=== PATIENT | male | born 1980 | race African-American/Black ===

== ENCOUNTER 2017-11-23 08:38 | Emergency (ER) ==
[2017-11-23 08:47] VITALS: BP 171/82; TEMP 96.2; BMI 31.9
[2017-11-23] MEDS ORDERED: PHENERGAN 25 MG/ML VIAL 25 MG in SODIUM CHLORIDE 50 ML IV STA (09:12)
[2017-11-23] MEDS ORDERED: SODIUM CHLORIDE 1,000 ML IV STA (09:13)
[2017-11-23] MEDS ORDERED: PHENERGAN 25 MG/ML VIAL ONE (09:17)
[2017-11-23] MEDS ORDERED: SODIUM CHLORIDE 50 ML IV ONE (09:22)
--- NOTE | 2017-11-23 12:04 | DI ---
EXAM: Abdomen one view HISTORY: Vomiting COMPARISON: None TECHNIQUE: Single view abdomen was performed. FINDINGS: There are no dilated loops of small bowel. There is air and stool throught the colon. There are no abnormal calcifications. There are no acute abnormalities of the bones. IMPRESSION: No acute abnormality identified.
--- NOTE | 2017-11-23 13:08 | ED.PDOC ---
General ED Provider: Dr. DONTE ARMAS MD Chief Complaint: Dizziness Stated Complaint: feeling dizzy lightheaded and nauseated Time Seen by Physician: 09:05 Mode of Arrival: Walk-In Information Source: Patient Exam Limitations: No limitations Nursing and Triage Documentation Reviewed and Agree: Yes Reviewed sepsis parameters & appropriate labs ordered?: Yes System Inflammatory Response Syndrome: Temp 96.8F or Lower Sepsis Protocol: For patient's 13 years and over: Temp is 96.8 and below OR 101 and greater Pulse >90 BPM Resp >20/minute Acutely Altered Mental Status Are patient's symptoms suggestive of a new infection, such as: -Pneumonia -Skin, Soft Tissue -Endocarditis -UTI -Bone, Joint Infection -Implantable Device -Acute Abdominal Infection -Wound Infection -Meningitis -Blood Stream Catheter Infection -Unknown System Inflammatory Response Syndrome: Not Applicable GI Complaint Exam - Vomiting/Diarrhea Complaint/Exam Onset/Duration: less than one day Symptoms Are: Still present (worsening since this morning) Episodes of Vomiting over last 24 Hours: 3 (mild wretching in ER) Episodes of Diarrhea Over Last 24 Hours: 0 Initial Severity: Mild Current Severity: Moderate Character of Vomiting: Reports: Retching Aggravating: Reports: None Alleviating: Reports: None Associated Signs and Symptoms: Reports: Dizziness (more like weakness), Light- headedness Non-GI Risk Factors: Reports: None Surgical Obstruction Risk Factors: Reports: None Related Surgical History: Reports: None Abdominal Findings: Present: None Rectal Exam: Present: Normal Findings Kussmaul Respirations Present: No Differential Diagnoses: Bowel Obstruction, Dehydration, Gastritis, Viral Gastroenteritis, Pancreatitis Review of Systems - Review Of Systems Constitutional: Reports: Chills, Weakness Eyes: Reports: No symptoms Ears, Nose, Mouth, Throat: Reports: No symptoms Respiratory: Reports: No symptoms Cardiac: Reports: No symptoms GI: Reports: Nausea : Reports: No symptoms, Other (no dysuria or CVA pain) Musculoskeletal: Reports: No symptoms Skin: Reports: No symptoms Neurological: Reports: No symptoms Endocrine: Reports: No symptoms Hematologic/Lymphatic: Reports: No symptoms All Other Systems: Reviewed and Negative Past Medical History - Past Medical History Previously Healthy: Yes Endocrine: Reports: None Cardiovascular: Reports: None Respiratory: Reports: None Hematological: Reports: None Gastrointestinal: Reports: None Genitourinary: Reports: None Neuro/Psych: Reports: None Musculoskeletal: Reports: None Cancer: Reports: None - Surgical History General Surgical History: Reports: None - Family History Family History: Reports: None - Social History Smoking Status: Current every day smoker Hx Substance Use: No Alcohol Screening: Occasionally Physical Exam - Physical Exam Appearance: Ill-appearing, Obese Ill-appearing: Moderate Pain Distress: None Eyes: NERIS, EOMI, Conjunctiva clear ENT: Ears normal, Nose normal, Oropharynx normal Neck: Supple Respiratory: Airway patent, Breath sounds clear, Breath sounds equal, Respirations nonlabored Cardiovascular: RRR, Pulses normal, No rub, No murmur GI/: Soft, Nontender, No masses, Bowel sounds hypoactive Re-Evaluation - Re-Evaluation Time of Re-Evaluation: 11:10 Status: Improved Vital Signs Stable: Yes Appearance: NAD Lungs: Clear Skin: Warm and Dry Neuro: Alert and Oriented X3 CV: RRR Critical Care Note - Critical Care Note Total Time (mins): 0 Course - Course Orders, Labs, Meds: Orders Category Date Time Status ED IV/MEDIPORT/POWERPORT .ONCE EMERGENCY 11/23/17 09:13 Active AMYLASE Stat LAB 11/23/17 09:16 Ordered CBC W/ AUTO DIFF Stat LAB 11/23/17 09:15 Ordered CMP [COMPREHENSIVE METABOLIC PANEL] Stat LAB 11/23/17 09:17 Ordered 0.9 % Sodium Chloride [Saline Flush] MEDS 11/23/17 09:13 Ordered 1 syr IVF PRN PRN Promethazine HCl [Phenergan 25 mg/ml Vial] 25 mg MEDS 11/23/17 09:12 Ordered 0.9 % Sodium Chloride [Sodium Chloride] 50 ml IV ONCE SODIUM CHLORIDE 0.9% @ 1,000 MLS/HR(1,000ml) MEDS 11/23/17 09:13 Ordered Sodium Chloride 0.9% [Sodium Chloride] 1,000 ml IV BOLUS KUB [ABDOMEN 1 VIEW] Stat RADS 11/23/17 09:17 Ordered Vital Signs: Temp Pulse Resp BP Pulse Ox 11/23/17 08:44 96.2 F L 55 L 16 171/82 H 97 Departure - Departure Time of Disposition: 11:30 Disposition: HOME SELF-CARE Discharge Problem: Dizziness Condition: Good Pt referred to PMD for follow-up: Yes IPMP verified?: No Allergies/Adverse Reactions: Allergies No Known Allergies Allergy (Unverified 11/23/17 08:40) Home Medications: Ambulatory Orders Multivitamin [Multi-Vitamin Daily] 1 each PO DAILY 11/23/17
== END 2017-11-23 12:25 | disposition home or self-care (01) ==
LOC: ED 08:38
DX: R42 Dizziness and giddiness (principal); R11.0 Nausea; F17.210 Nicotine dependence, cigarettes, uncomplicated
CPT/HCPCS: 36415; 80053; 82150; 85025; 96361; 96365; 99283

== ENCOUNTER 2017-11-28 15:24 | Observation (INO) ==
[2017-11-28 16:09] VITALS: BMI 32.0
[2017-11-28] MEDS ORDERED: TYLENOL PO PRN (16:49)
[2017-11-28] MEDS ORDERED: DECADRON 4 MG/ML SDV IVP STA (16:50)
[2017-11-28] MEDS: SODIUM CHLORIDE 1,000 ML IV SCH (17:45)
[2017-11-28] MEDS: ANTIVERT PO PRN ×2 (17:45→20:02)
[2017-11-28] MEDS: VALIUM PO SCH ×2 (17:45→20:02)
[2017-11-28] MEDS ORDERED: ZOFRAN 4 MG/2 ML IVP PRN (19:51)
[2017-11-29] MEDS: SODIUM CHLORIDE 1,000 ML IV SCH (05:58)
[2017-11-29] MEDS ORDERED: DECADRON 4 MG/ML SDV IM STA (08:26)
--- NOTE | 2017-11-29 09:52 | MRI ---
EXAM: MRI brain without and with IV contrast. DATE: 29 November 2017. HISTORY: Severe dizziness since last Tuesday, symptoms when getting. TECHNIQUE: Sagittal T1W pre and postcontrast, axial T2W, axial FLAIR, axial T1W pre and postcontrast , axial DWI, coronal T1W postcontrast, and coronal T2W GRE sequences of the brain were obtained using 1.2 Letha magnet. CONTRAST: Omniscan - 20 ml IV. COMPARISON: None. FINDINGS: The ventricles, cisterns, and subarachnoid spaces are normal in size and configuration. N o midline shift, mass effect or abnormal extra-axial fluid collection is apparent. No acute infarct or hemorrhage is identified. A 6.5 x 4.5 mm , T1W postcontrast mildly bright focus seen on axial T1W postcontrast image #5 does not have corresponding abnormality on any of the other precontrast or pos tcontrast sequences, and is likely artifact. No abnormal contrast enhancement is identified in the me ninges or dura. The stephens - white matter differentiation is normal. No migration or diverticulation abnormality is identified. The amygdala, hippocampus, and parahippocampal gyri are similar bilateral ly. The 7th/8th cranial nerve complexes, cerebellopontine angles, brainstem, and visible cervical sp inal cord are normal. There is no cerebellar tonsillar ectopia. The pituitary gland is normal in si ze and signal. Corpus callosum is normal in size and configuration. Flow voids are present in the m ajor intracranial arteries and in the dural venous sinuses. No aneurysm, AVM or dural venous sinus t hrombosis is apparent. No orbit abnormality is identified. A few inferior right mastoid air cells h ave T2W bright, T1W intermediate signal without abnormal enhancement. Left mastoid air cells are unr emarkable. There is minor mucosal thickening in the right frontal sinus. Mild adenoid tissue promin ence is observed. Several 1-4 mm T2W bright foci without abnormal enhancement noted within the adeno id tissues likely represents a retention cysts. No neck mass or lymphadenopathy is detected. No giovanny varial neoplasm or acute fracture is evident. IMPRESSIONS: 1. Probable pulsation artifact in the brainstem on axial postcontrast image #5. No corresponding ab normality on the other sequence. 2. No acute infarct, hemorrhage, or hydrocephalus. 3. Minor right mastoid air cell disease. 4. Minor right frontal sinus disease. 5. Mild adenoid hypertrophy (chronic).
[2017-11-29] MEDS ORDERED: DECADRON 4 MG/ML SDV IVP STA (10:21)
[2017-11-29] MEDS: VALIUM PO SCH (10:22)
[2017-11-29] MEDS: ANTIVERT PO PRN (10:34)
[2017-11-29 18:12] VITALS: BP 158/92; TEMP 98.4
--- NOTE | 2018-01-05 10:39 | DS ---
DATE OF SERVICE: 11/29/17 FINAL DIAGNOSIS: 1. POSITIONAL VERTIGO/DIZZINESS 2. HISTORY OF TONSILLITIS 3. SMOKER 4. ALCOHOL USE DISCHARGE INSTRUCTIONS: 1. Discharge the patient home. 2. Increase hydration. 3. Fall risk discussed. 4. Please do not go to the office until seen in the Clinic within two to three days. MEDICATIONS AT DISCHARGE: Multivitamin one p.o. daily Valium NEW PRESCRIPTIONS: Meclizine 25 mg p.o. t.i.d. p.r.n. Zofran 4 mg p.o. t.i.d. Augmentin 500-125 mg one tab p.o. q.8hr Prednisone 10 mg p.o. b.i.d. with meal DIET INSTRUCTIONS: Heart Healthy ACTIVITY: As much as patient tolerates. SMOKING: Advised to quit smoking DISEASE SPECIFIC EDUCATION: Dizziness Vertigo Fall precautions Bacterial infections have been discussed and he verbalized understanding HOSPITAL COURSE: This is a 37-year-old male came to the office with onset of severe dizziness. When moving his head he had perspiration and unsteadiness. Admitted to the hospital and started on Decadron, Valium. MRI of the brain obtained which showed pulsation artifact in the mid brainstem. No corresponding abnormality. No acute infarct. Right mastoid air cell disease. Minor right frontal sinusitis. He was started on Augmentin, Prednisone, Meclizine and Zofran. With the given treatment by the next day the patient was a lot better. He was up and about, able to move his head. He did not have any problems, was walking fine, slightly dizzy when he was getting up. Advised to move slowly and patient discharged home. TIME SPENT: MORE THAN 65 MINUTES MTDD
== END 2017-11-29 19:45 | disposition home or self-care (01) ==
LOC: MEDSURG B 15:24
PROVIDERS: ADMIT Emergency Medicine; ATTEND Emergency Medicine
DX: H81.12 Benign paroxysmal vertigo, left ear (principal); J01.10 Acute frontal sinusitis, unspecified; R61 Generalized hyperhidrosis; F17.210 Nicotine dependence, cigarettes, uncomplicated; Z87.09 Personal history of other diseases of the respiratory system; Z72.89 Other problems related to lifestyle
CPT/HCPCS: 36415; 80053; 82550; 82553; 84484; 93005; 93010; 96361; 96374; 96375; 96376